=== PATIENT | male | born 1995 | race Caucasian/White ===

== ENCOUNTER 2016-10-09 06:54 | Emergency (ER) | payer SELFPAY ==
[~2016-10-09] VITALS: Ht 167.6 cm; Wt 70.0 kg
[2016-10-09 06:55] VITALS: BP 134/68; PULSE 96; RESP 16; TEMP 98.9; O2SAT 99
[2016-10-09] MEDS ORDERED: BACT800T5 PO (07:45)
[2016-10-09] MEDS ORDERED: CEPH-460 PO (07:45)
--- NOTE | 2016-10-09 07:45 | PD ---
HPI Chief Complaint: Skin Problem Time Seen by Provider: 07:44 Travel History International Travel<30 days: No Contact w/Intl Traveler<30days: No Traveled to known affect area: No History of Present Illness HPI 20-year-old young man, presents to [facility] complaining of pain and redness around the area of abrasion on his left knee. Nitroglycerin he got the abrasion. Over the past 24 hours or so is More redness and erythema around it. He has pain with walking. No pain with flexing the knee. Minimal pain with standing. No fevers or chills. No other complaints. History Social History Alcohol Use: No Tobacco Use: No Allergies-Medications (Allergen,Severity, Reaction): Coded Allergies: No Known Allergies (Verified , 10/09/16) Reported Meds & Prescriptions Reported Meds & Active Scripts Active Bactrim DS (Sulfamethoxazole-Trimethoprim) 800-160 Mg Tab 1 Tab PO BID 7 Days Keflex (Cephalexin) 500 Mg Capsule 500 Mg PO Q8H 7 Days Review of Systems Except as stated in HPI: all other systems reviewed are Neg Physical Exam Narrative GENERAL: 20-year-old young man, no acute distress. SKIN: Warm and dry. CARDIOVASCULAR: Warm and well perfused. RESPIRATORY: Normal rate and effort. MUSCULOSKELETAL: Left knee has a small abrasion on the anterior aspect of the knee, but a centimeter in diameter, with a small rim of surrounding erythema, 2- 3 cm. Initial bit of tenderness in this area. Is a little bit of blotchy erythema coming up on the inside of the knee. NEUROLOGICAL: Awake and alert. No gross deficits. Data Data Last Documented VS Vital Signs Date Time Temp Pulse Resp B/P (MAP) Pulse Ox O2 Delivery O2 Flow Rate FiO2 10/09/16 07:53 10/09/16 06:55 98.9 96 16 99 Room Air [facility] Medical Decision Making Medical Screen Exam Complete: Yes Emergency Medical Condition: Yes Differential Diagnosis Cellulitis, abrasion, abscess, septic arthritis, other Narrative Course Medical decision-making 20-year-old with skin infection on the left knee. No evidence of septic arthritis. Good painless range of motion. Diagnosis Primary Impression: Cellulitis Additional Instructions: Take antibiotics as prescribed. Return to the ER for any worsening pain, redness, swelling, or fevers. Med/Other Pt SpecificInfo: Prescription(s) given Scripts Sulfamethoxazole-Trimethoprim (Bactrim DS) 800-160 Mg Tab 1 TAB PO BID for Infection for 7 Days, #14 TAB 0 Refills Prov: Best Lucas MD 10/09/16 Cephalexin (Keflex) 500 Mg Capsule 500 MG PO Q8H for Infection for 7 Days, CAP 0 Refills Prov: Best Lucas MD 10/09/16 Disposition: 01 DISCHARGE HOME Condition: Stable Best Lucas MD Oct 09, 2016 07:45
== END 2016-10-09 07:58 | disposition home or self-care (01) ==
LOC: NEPK 06:54
DX: L03.116 Cellulitis of left lower limb (principal)
CPT/HCPCS: 99284